=== PATIENT | male | born 1960 | race African-American/Black ===

== ENCOUNTER 2021-04-28 22:02 | Inpatient (IN) | payer SELFPAY ==
--- NOTE | ~2021-04-28 | XR_ITS ---
EXAMINATION: XR chest 1V portable DATE: 04/28/2021 22:32 INDICATION: Syncope. Colon cancer on chemotherapy. TECHNIQUE: frontal view of the chest was obtained. COMPARISON: None FINDINGS: Left subclavian central venous port catheter with distal tip at the confluence of the left brachiocep halic vein and the superior vena cava. Lungs are clear with no focal airspace opacities, pulmonary ed arnie, pleural effusion or pneumothorax. The cardiomediastinal silhouette is normal. Visualized bones a nd soft tissues are unremarkable. IMPRESSION: 1. No acute cardiopulmonary disease. Reviewed, dictated and finalized at location A. RY PLANT OPERATOR
[2021-04-28 22:02] VITALS: BP 109/79; PULSE 90; RESP 20; TEMP 36.3; O2SAT 100
--- NOTE | 2021-04-28 22:18 | ECG_ITS ---
Measurements Intervals [place] Rate: 90 P: 65 DE: 135 QRS: 22 QRSD: 91 T: 75 QT: 378 QTc: 463 Interpretive Statements SINUS RHYTHM INCOMPLETE RIGHT BUNDLE BRANCH BLOCK SEPTAL ST ELEVATION MYOCARDIAL INFARCT- ACUTE WITH SIGNIFICANT ST DEPRESSION IN OTHER LEADS ABNORMAL ECG Electronically Signed On 04-29-2021 7:11:12 BARROW WORKER by Nigel Reed D.O.
[2021-04-28] MEDS: SODIUM CHLORIDE 0.9% IV 1,000 ML 999 ML IV CONT (22:26)
--- NOTE | 2021-04-28 22:32 | ED.SYNCOPE ---
HPI - Syncope General Chief Complaint: Syncope Stated Complaint: syncope x 2 Time Seen by Provider: 04/28/21 22:16 Source: patient, EMS and RN notes reviewed Mode of arrival: EMS Limitations: no limitations History of Present Illness HPI narrative: This is a 60 year old male with history of kidney disease, stage 4 colon cancer who presents for evaluation of syncopal episode. He states he was at a concert when he started to feel unwell. He reports nausea and weakness. EMS reports patient passed out once at concert but he did not hit his head. He was witnessed to have another syncopal episode on EMS arrival. Patient reports he feels better but still has nausea. EMS performed EKG in the field which shows significant ST depression in several leads. He denies chest pain, shortness of breathing, back pain, or arm pain. He denies history of heart disease or coronary stent. He also denies abdominal pain, blood stools, hemoptysis. Related Data Allergies Allergy/AdvReac Type Severity Reaction Status Date / Time No Known Allergies Allergy Verified 04/28/21 22:13 Review of Systems Review of Systems: All systems reviewed & are unremarkable except as noted in HPI and below PMFSH Past Medical History Medical History Colon cancer Surgical History Surgical History H/O colectomy History of renal stent Social History Social History Smoking status: Never smoker Alcohol use details: rarely Substance use type: marijuana Last use: marijuana for nausea Exam Const: General: no acute distress and alert Orientation/consciousness: patient oriented x3 Eyes: EOM: EOMs intact bilaterally Chest: Chest palpation & inspection: normal inspection of the chest Resp: Effort & Inspection: normal respiratory effort and no retractions Auscultation: clear to auscultation bilaterally Cardio: Rate: regular rate Rhythm: regular rhythm Heart sounds: no murmurs GI: Auscultation: normal bowel sounds Skin: General skin exam: normal color Rashes: no rashes Neuro: General: patient oriented x3 and CN's II-XI intact bilaterally Extrem: General: normal to inspection Psych: Mental Status: mental status grossly normal Affect: normal affect Course Reevaluation(s) Reevaluation #1: PAtient denies chest pain to me. Nurse reports patient reported 1/10 left sternal burning chest pain. PAtient is aware of concern for heart attack and he will be taken to computer lab assistant for evaluation. Patient has been given aspirin 324 mg and heparin 4000 units. Date: 04/28/21 Time: 22:25 Consultations Consultation #1: I spoke with Dr. Jorgensen, interventionalist shipwright supervisor about patient EKG. EKG shows ST elevation V1, V2, AVR with diffuse depression. He states he is on his way in . Cath labs has already been activated. Date: 04/28/21 Time: 22:30 Vital Signs Vital signs: Vital Signs Temperature 97.4 F L 04/28/21 22:02 Pulse Rate 90 04/28/21 22:02 Respiratory Rate 20 04/28/21 22:02 Blood Pressure 109/79 04/28/21 22:02 Pulse Oximetry 100 04/28/21 22:02 Temperature 97.4 F L 04/28/21 22:02 Pulse Rate 89 04/28/21 23:15 Respiratory Rate 18 04/28/21 23:15 Blood Pressure 104/81 04/28/21 23:15 Pulse Oximetry 100 04/28/21 23:15 MDM - Syncope Lab Data Attestation: I reviewed the patient's lab results. Result diagrams: 04/28/21 22:54 04/28/21 22:53 Labs: Lab Results 04/28/21 04/28/21 04/28/21 Range/Units 22:31 22:53 22:53 WBC (4.5-10.0) K/mm3 RBC (4.6-6.20) M/mm3 Hgb (14.0-18.0) g/dL Hct (42.0-52.0) % MCV (80-100) fl MCH (26-34) pg MCHC (32-36) g/dl RDW (11.5-14.5) % Plt Count (150-375) k/mm3 MPV (7.4-10.4) fl Immature Gran % (Auto) (0-0.5) % Neut % (Auto
[2021-04-28 22:34] LABS: Glucose Point of Care 97 mg/dl (65-105)
[2021-04-28 22:58] LABS: Basophils Absolute Auto 0.1 K/mm3 (0.0-0.1); Basophils Percent Auto 0.4 % (0.2-1.2); Eosinophils Absolute Auto 0.1 K/mm3 (0-0.3); Eosinophils Percent Auto 0.4 % (0-4.4); Hemoglobin 13.6 g/dL (14.0-18.0); Immature Granulocyte Absolute 0.06 K/mm3 (0.00-0.031); Immature Granulocyte Percent A 0.4 % (0-0.5); Lymphocytes Absolute Auto 0.79 K/mm3 (0.9-3.2); Lymphocytes Percent Auto 5.6 % (18.3-44.2); Mean Corpuscular Hemoglobin 31.5 pg (26-34); Mean Corpuscular Volume 92.6 fl (80-100); Monocytes Percent Auto 6.8 % (2.6-8.5); Neutrophils Absolute Auto 12.2 K/mm3 (1.3-6.7); Neutrophils Percent Auto 86.4 % (45.5-73.1); Platelet Count Result 260 k/mm3 (150-375); Red Blood Count 4.32 M/mm3 (4.6-6.20); Red Cell Distribution Width 16.3 % (11.5-14.5); White Blood Count 14.2 K/mm3 (4.5-10.0)
[2021-04-28 23:08] LABS: Lactic Acid Reflex 2.7 mmol/L (0.7-2.1)
--- NOTE | 2021-04-28 23:09 | P.PCNCC_ITS ---
Cardiac Cath Procedure Note Date of procedure:: 04/29/21 Performing physician:: Cuauhtemoc Jorgensen MD Date of service 04/28/2021 Indication:: STEMI Brief clinical history:: 60-year-old patient with history of colon cancer, chronic kidney disease, on chemotherapy who was the concert and apparently did not feel well and passed out. Denies chest pain. EKG shows ST elevation V1 and V2 and diffuse ST depression everywhere else. Procedure Procedure performed:: 1-Moderate sedation that started at 2322and ended at12:00 am using 2mg of Versed and50 mcg fentanyl. The registered nurse was bhavya chen. 2-Selective left and right coronary angiogram. 3-Left heart catheterization with measurement of LVEDP and measurement of gradient across aortic valve. 4-LV angiogram. 5- insertion of intra-aortic balloon pump. 6-Right common femoral arterial angiogram. Sedation/Medication given:: Moderate sedation. Access site:: Right common femoral artery. Estimated blood loss:: 10cc Procedure note:: After informed consent patient was brought in to slab stripper with the was draped and prepped in usual manner. Moderate sedation was given and the right groin was infiltrated using 1% lidocaine. [place] sheath was obtained using micropuncture needle and the modified Seldinger technique. Selective left coronary angiogram was done using CLS 3.5 guide catheter with the tip of the catheter placed in the left main coronary artery. intracoronary nitroglycerin was given and repeated angiogram was done.Selective right coronary angiogram was done using AL1 catheter catheter with the tip of the catheter placed to the right coronary artery. After that 5 [place] pigtail catheter was advanced across the aortic valve into the left ventricle with measurement of LVEDP and measurement of gradient across aortic valve. LV angiogram was done as well. Right common femoral arterial angiogram was done. after that the right groin sheath was upgraded to 8 [place] sheath. Intra- aortic pump was inserted secured in place. IV heparin infusion was given. Findings:: 1- left coronary artery is a large artery that divides into large LAD, large circumflex artery a large ramus intermedius. Left main has diffuse 90% stenosis. 2- left anterior descending artery is a large artery that runs and wraps around the apex. free of disease. 3- leftcircumflex artery is a large artery And free of disease. Large OM1 free of disease. 4- ramus intermedius is a large artery and free of disease. 4- right coronary artery is Large artery free of disease. 5- LVEDP was 15 mmhg and no gradient across aortic valve. 6- LV angiogram shows normal LV systolic function estimated ejection fraction 55%. No wall motion abnormalities. 6- opening arterial pressure 110/70 was and closing pressure was95/70 7- right femoral artery angiogram shows no significant disease in the right common femoral artery. Conclusion:: - critical left main disease. no other significant CAD. normal LV systolic function Assessment and Plan Additional Plan patient will be transferred to an outside facility for CABG. Patient requesting to go to [facility].
--- NOTE | 2021-04-28 23:09 | WPDHPUPDATE1 ---
History and Physical Update Update Date/Time: 04/28/21 23:09 History and Physical has been reviewed, including an updated exam of the patient. There are NO changes in the patient's condition. Risks, benefits, and alternatives have been discussed and questions answered. Patient agrees to proceed with procedure.
--- NOTE | 2021-04-28 23:09 | WPDMODSED ---
Moderate Sedation Note-Pt Data Patient Data Allergies Allergy/AdvReac Type Severity Reaction Status Date / Time No Known Allergies Allergy Verified 04/28/21 22:13 Current Medications: Active Medications Sodium Chloride (Normal Saline Iv) 1,000 mls @ 999 mls/hr IV CONT .Q1H1M STA Stop: 04/28/21 23:20 Last Admin: 04/28/21 22:26 Dose: 999 mls/hr Documented by: Sodium Chloride (Normal Saline Iv) 500 mls @ 100 mls/hr IV CONT .Q5H CONCETTA Sodium Chloride (Central Line Flush) 10 ml IV PUSH Q8HR CONCETTA Sodium Chloride (Central Line Flush) 10 ml IV PUSH DAILY@1800 CONCETTA Sodium Chloride (Central Line Flush) 20 ml IV PUSH PRN PRN PRN Reason: after blood draws Sedation/Anesthesia: No previous sedation/anesthesia problems (including family history). PMFSH Past Medical History Medical History Colon cancer Surgical History Surgical History H/O colectomy History of renal stent Social History Social History Smoking status: Never smoker Alcohol use details: rarely Substance use type: marijuana Last use: marijuana for nausea Mod Sed Physical Exam Physical Exam Pre Procedural Exam: Normal: Appearance, Eyes, Ears, Nose, Neck, Throat, Airway, Lungs, Heart Size, Heart Rate, Heart Rhythm, Neuro Exam, Abdomen, Liver, Kidneys, Spleen, Breasts, Genitalia, Extremities and Skin Hours since solid foods: 8 Hours since liquid intake: 8 Mallampati Classification: class 1 Internal Medicine - PN: Obj Da Vital Signs Vital Signs: Vital Signs - 24 hr 04/28/21 22:02 Temperature 36.3 C L Pulse Rate 90 Respiratory Rate 20 Blood Pressure 109/79 Pulse Oximetry 100 Meds/Results Medications: Active Medications Generic Name Dose Route Start Last Admin Trade Name Freq PRN Reason Stop Dose Admin Sodium Chloride 1,000 mls @ 999 mls/hr 04/28/21 22:20 04/28/21 22:26 Normal Saline Iv IV CONT 04/28/21 23:20 999 mls/hr .Q1H1M STA Administration Sodium Chloride 500 mls @ 100 mls/hr 04/28/21 23:10 Normal Saline Iv IV CONT .Q5H CONCETTA Sodium Chloride 10 ml 04/29/21 06:00 Central Line Flush IV PUSH Q8HR CONCETTA Sodium Chloride 10 ml 04/29/21 18:00 Central Line Flush IV PUSH DAILY@1800 CONCETTA Sodium Chloride 20 ml 04/28/21 22:44 Central Line Flush IV PUSH PRN PRN after blood draws Labs CBC & Chem 7: 04/28/21 22:54 04/28/21 22:53 Labs: Laboratory Results - last 24 hr 04/28/21 04/28/21 04/28/21 22:31 22:53 22:54 WBC 14.2 H RBC 4.32 L Hgb 13.6 L Hct 40.0 L MCV 92.6 MCH 31.5 MCHC 34.0 RDW 16.3 H Plt Count 260 MPV 10.0 Immature Gran % (Auto) 0.4 Neut % (Auto) 86.4 H Lymph % (Auto) 5.6 L Beckham % (Auto) 6.8 Eos % (Auto) 0.4 Baso % (Auto) 0.4 Lymph # (Auto) 0.79 L Beck[place] # (Auto) 1.0 H Eos # (Auto) 0.1 Baso # (Auto) 0.1 Abs Immat Gran (auto) 0.06 H Absolute Neuts (auto) 12.2 H Absolute Nucleated RBC 0.0 Nucleated RBC % 0.0 POC Capillary Glucose 97 Lactic Acid 2.7 H ASA Classification/Sedation ASA Classification/Sedation ASA Class: I Emergent: No Risks: Risks, benefits and alternatives explained and patient/family accepted plan for sedation. Patient re-evaluated immediately prior to sedation.
[2021-04-28 23:10] LABS: Alanine Aminotransferase 95 U/L (4-50); Albumin Level 4.1 g/dL (3.5-5.1); Alkaline Phosphatase 65 U/L (38-126); Anion Gap 9 mmol/L (8-16); Aspartate Amino Transferase 88 U/L (17-59); Bilirubin,Total 0.4 mg/dL (0.2-1.3); Blood Urea Nitrogen 9 mg/dL (9-20); Carbon Dioxide 26 mmol/L (22-30); Chloride 106 mmol/L (98-107); Estimated CRCL calculation 54 ml/min; Estimated Glomerular Filt Rate > 60; Glucose 95 mg/dL (65-110); INR 1.2; Lipase 458 U/L (23-300); Magnesium 1.7 mg/dL (1.6-2.3); Potassium 3.9 mmol/L (3.4-5.0); Prothrombin Time 14.8 Seconds (11.1-14.7); Sodium 141 mmol/L (137-145)
--- NOTE | 2021-04-28 23:11 | PM.IMHP ---
H&P: HPI History of Present Illness Date/Time: date of service :04/28/21 23:11 Chief Complaint: dizziness Narrative: 60-year-old patient with history of colon cancer, chronic kidney disease, on chemotherapy who was the concert and apparently did not feel well. he felt lightheaded, weak but did not pass out. The Denies chest pain. denies shortness of breath. EKG shows ST elevation V1 and V2 and diffuse ST depression everywhere else. patient was taken to the cathode maker and immediately there diffuse 90% left main disease. his LAD, ramus, left circumflex artery and RCA looked unremarkable. His LV function shows ejection fraction 55% and no wall motion abnormalities and LVEDP 15 mm Hg. intra-aortic balloon pump was inserted patient was started on heparin. Review of Systems Review of Systems: All systems reviewed & are unremarkable except as noted in HPI and below Constitutional: Constitutional: Denies chills, Denies fatigue, Denies fever(s), Denies headache(s), Reports malaise and Denies snoring Eyes: Eyes: Denies eye discharge and Denies loss of vision ENT: Denies dizziness, Denies headache(s), Denies nasal discharge and Denies sore throat Cardiovascular: Cardiovascular: Reports as per HPI, Denies chest pain, Denies syncope, Denies rapid heart rate, Denies leg edema, Denies dyspnea, Denies dyspnea on exertion, Denies orthopnea and Denies paroxysmal nocturnal dyspnea Respiratory: Respiratory: Denies chest congestion, Denies cough, Denies dyspnea, Denies dyspnea on exertion, Denies snoring and Denies wheezing Gastrointestinal: Gastrointestinal: Denies abdominal pain, Denies diarrhea, Denies nausea and Denies vomiting Genitourinary: Genitourinary: Denies hematuria, Denies dysuria, Denies flank pain and Denies urinary frequency Musculoskeletal: Musculoskeletal: Denies myalgias, Denies arthralgias and Denies joint swelling Neurologic: Denies Abnormal speech present, Reports dizziness, Denies syncope, Denies headache(s), Denies focal weakness, Denies loss of vision and Reports weakness Psychiatric: Psychiatric: Denies anxiety and Denies depression Endocrine: Endocrine: Denies cold intolerance, Denies fatigue and Denies heat intolerance Hematologic/Lymphatic: Hematologic/Lymphatic: Denies easy bleeding and Denies easy bruising Allergic/Immunologic: Allergic/Immunologic: Denies urticaria and Denies wheezing PMFSH Past Medical History Medical History Colon cancer Surgical History Surgical History H/O colectomy History of renal stent Social History Social History Smoking status: Never smoker Alcohol use details: rarely Substance use type: marijuana Last use: marijuana for nausea Meds Home Medications and Allergies Allergies Allergy/AdvReac Type Severity Reaction Status Date / Time No Known Allergies Allergy Verified 04/28/21 22:13 Vital Signs Vital Signs - 24 hr 04/28/21 22:02 Temperature 36.3 C L Pulse Rate 90 Respiratory Rate 20 Blood Pressure 109/79 Pulse Oximetry 100 Exam Const: General: cooperative, healthy appearing, comfortable, no acute distress and well developed Nutritional Appearance: well nourished Orientation/consciousness: patient oriented x3 HENMT: Head: normal to inspection, normocephalic and atraumatic Ears: hearing grossly normal bilaterally and external ears normal General nose exam: Normal external nose present and Normal nares present Face and sinus: normal facial exam and no erythema Mouth: Yes moist mucous membranes and No lip abnormal Throat: uvula midline Eyes: General: appearance normal, both eyes and all related structures Eyelids: eyelids normal Sclera: sclerae normal Neck: Neck: normal visual inspection and full ROM Thyroid: thyroid normal Carotids: no bruits Lymphatic: lymphedema not noted Kary
[2021-04-28 23:15] VITALS: BP 104/81; PULSE 89; RESP 18; O2SAT 100
[2021-04-28 23:25] LABS: Partial Thromboplastin Time > 200.0 SECONDS (22.3-36.8)
[2021-04-29] LABS: Troponin I 0.631 ng/mL (0.000-0.034)
[2021-04-29 01:56] LABS: Reflex Lactic Acid Yes or No Add Lactic
--- NOTE | 2021-05-24 17:57 | P.TS_ITS ---
Transfer Discharge Sum: Prov Provider Date of admission: 04/28/21 22:24 Primary care physician: PRECISION JIG GRINDER PHYSICIAN Admitting clinician: Cuauhtemoc Jorgensen MD DS: Admitting Diagnosis Discharge Date 04/29/21 Admitting Diagnosis stemi syncope DS: Discharge Diagnosis Discharge Diagnosis (1) ST elevation (STEMI) myocardial infarction: Qualifiers: Involved coronary artery: left main coronary artery Qualified Code(s): I21.01 - ST elevation (STEMI) myocardial infarction involving left main coronary artery Code(s): I21.3 - ST elevation (STEMI) myocardial infarction of unspecified site Status: Acute Assessment and Plan: critical left main IABP in place heparin (2) Syncope and collapse: Code(s): R55 - Syncope and collapse Status: Acute Assessment and Plan: secondary to critical left main Transfer Discharge Sum: Med Medications Active and Home Medications: heparin drip Transfer Discharge Sum: Hosp Hospital Course Hospital course: 60-year-old patient with history of colon cancer, chronic kidney disease, on chemotherapy who was the concert and apparently did not feel well. he felt lightheaded, weak but did not pass out. The Denies chest pain. denies shortness of breath. EKG shows ST elevation V1 and V2 and diffuse ST depression everywhere else. patient was taken to the cardiac cath lab technologist and immediately there diffuse 90% left main disease. his LAD, ramus, left circumflex artery and RCA looked unremarkable. His LV function shows ejection fraction 55% and no wall motion abnormalities and LVEDP 15 mm Hg. intra-aortic balloon pump was inserted patient was started on heparin. patient was accepted to transfer to the [facility]. Time Spent with Patient Time attestation: Total time spent providing and/or coordinating transfer servi ramiro: 85 minutes Exam Const: General: in distress and uncomfortable HENMT: Mouth: Yes moist mucous membranes Eyes: Sclera: sclerae normal Neck: Neck: supple Thyroid: thyroid normal Resp: Auscultation: crackles Cardio: Rate: regular rate Heart sounds: no murmurs GI: GI Palp: Yes Soft to palpation and No Tenderness to palpation present (GI) Urinary Catheter: Urinary Catheter: urine clear Skin: General skin exam: normal color Neuro: Cognition (Neuro): normal cognition Speech: normal speech Extrem: General: normal to inspection and no edema Psych: Affect: Anxious affect present DS: Data Data Completed and Pending Completed studies during hospitalization: cardiac cath
== END 2021-04-29 00:24 | disposition short-term general hospital (02) | DRG 190 ==
LOC: ANHED 22:36 → ANHCATHLAB 04-29 01:07 → ANHED 05-03 16:08 → ANHICU 05-04 10:41
PROVIDERS: Admitting Provider Internal Medicine Cardiovascular Disease; Emergency Provider General Practice; Visit Provider Internal Medicine Cardiovascular Disease
PROC: 4A023N7 Measurement of Cardiac Sampling and Pressure, Left Heart, Percutaneous Approach (ICD-10-PCS; CPT 93452; principal; 2021-04-28 22:50)
DX: I21.3 ST elevation (STEMI) myocardial infarction of unspecified site (principal); I25.10 Atherosclerotic heart disease of native coronary artery without angina pectoris; N18.9 Chronic kidney disease, unspecified; C18.9 Malignant neoplasm of colon, unspecified; Z85.038 Personal history of other malignant neoplasm of large intestine
CPT/HCPCS: 33967; 36415; 71045; 80053; 82948; 83605; 83690; 83735; 84484; 85025; 85610; 85730; 93005; 93458; 99291; A9270; C1887; C1894; J1644; J2250; J2405; J3010; J7030; J7040; J7060